=== PATIENT | female | born 1985 | race Caucasian/White ===

== ENCOUNTER 2020-12-30 06:50 | Inpatient (IN) ==
[2020-12-30] MEDS ORDERED: FAMOTIDINE 20 MG/2 ML VIAL IV ONE (07:06)
[2020-12-30] MEDS ORDERED: CITRIC ACID/SODIUM CITRATE 30 ML UDCUP PO ONE (07:06)
[2020-12-30] MEDS ORDERED: CLINDAMYCIN INJ 900 MG in PREMIX 1 EACH IV ONE (07:08)
[2020-12-30] MEDS ORDERED: OXYTOCIN/LR 20 UNIT/1,000 ML BAG IV ONE ×3 (07:25→10:26)
[2020-12-30] MEDS ORDERED: ONDANSETRON 4 MG/2 ML VIAL IV PRN ×2 (07:26→10:26)
[2020-12-30 07:29] LABS: Basophils % 0.4 % (0.0-0.8); Eosinophils # 0.1 10*3/uL (0.0-0.87); Eosinophils % 0.8 % (0.00-10.9); Hematocrit 39.6 VOL% (35.7-47.0); Hemoglobin 13.1 GM/DL (12.0-16.0); Immature Granulocytes % 2.6 %; Immature Granulocytes Absolute 0.28 #; Lymphocytes # 1.5 10*3/uL (1.4-4.0); Lymphocytes % 13.3 % (21.3-54.2); Mean Corpuscular HGB Conc 33.1 GM/DL (32-36); Mean Corpuscular Volume 91.7 FL (87-102); Mean Platelet Volume 11.7 FL (9.6-12.0); Neutrophils % 76.9 % (38.7-73.9); Platelet Count 232 T/CUMM (130-400); Red Blood Count 4.32 MC/CUMM (3.8-5.5)
[2020-12-30] MEDS ORDERED: LACTATED RINGERS 1,000 ML IV SCH ×2 (07:30→10:30)
[2020-12-30 07:47] LABS: Alanine Aminotransferase 27 U/L (13-56); Albumin 2.6 G/DL (3.4-5.0); Alkaline Phosphatase 219 U/L (45-117); Aspartate Amino Transferase 23 U/L (0-37); Bilirubin,Total < 0.39 MG/DL (0.2-1.0); Blood Urea Nitrogen 12 MG/DL (7-18); Calcium 8.7 MG/DL (8.5-10.1); Carbon Dioxide 20 MMOL/L (21-32); Estimated Glom Filtration Rate 135 ML/MIN; Glucose 71 MG/DL (74-106); Osmolality,Calculated 270.8 MOS/KG (273-304); Potassium 3.8 MMOL/L (3.5-5.1); Sodium 137 MMOL/L (136-145); Total Protein 7.5 G/DL (6.4-8.3)
[2020-12-30] MEDS ORDERED: miSOPROStoL 200 MCG TABLET ONE (08:13)
[2020-12-30] MEDS ORDERED: TRANEXAMIC ACID 1,000 MG/10 ML VIAL ONE (08:13)
[2020-12-30] MEDS ORDERED: METHYLERGONOVINE 0.2 MG/1 ML AMP ONE (08:14)
[2020-12-30] MEDS ORDERED: CARBOPROST TROMETHAMINE 250 MCG/ML AMP IM ONE (08:14)
[2020-12-30] MEDS ORDERED: BUPIVACAINE SPINAL 0.75% 2 ML AMP SPINAL ONE (08:16)
[2020-12-30] MEDS ORDERED: MORPHINE 10 MG/10 ML VIAL ONE (08:17)
[2020-12-30] MEDS ORDERED: fentaNYL 100 MCG/2 ML VIAL ONE (08:17)
[2020-12-30] MEDS ORDERED: PHENYLEPHRINE 1 MG/10 ML SYRINGE IV ONE (08:34)
[2020-12-30] MEDS ORDERED: ONDANSETRON 4 MG/2 ML VIAL ONE (08:34)
[2020-12-30] MEDS ORDERED: ePHEDrine 50 MG/ML VIAL ONE (08:37)
[2020-12-30] MEDS ORDERED: LACTATED RINGERS 1,000 ML IV ONE (08:54)
[2020-12-30] MEDS ORDERED: BUPIVACAINE MPF 0.25% 30 ML VIAL ONE (09:12)
[2020-12-30 09:15] LABS: Cord Venous Blood HCO3 21.9 MMOL/L; Cord Venous Blood PCO2 37.1 MMHG; Cord Venous Blood PO2 36.8 MMHG
[2020-12-30] MEDS ORDERED: ACETAMINOPHEN 1,000 MG/100 ML VIAL IV ONE (09:23)
[2020-12-30 09:33] LABS: Bilirubin,Urine Negative (Negative); Blood, Urine Negative (Negative); Glucose,Urine (UA) Negative (Negative); Ketones,Urine Negative (Negative); Mucus,Urine Occasional /LPF (Occasional); Nitrite,Urine Negative (Negative); Protein,Urine Negative; Squamous Epithelial Cell,Urine Occasional /HPF (0-10); Urine Appearance CLEAR (Clear); Urine Color Yellow (Yellow); Urine Specific Gravity 1.014 (1.001-1.035); Urine Urobilinogen < 2.0 EU/DL (0.2-1.0)
[2020-12-30] MEDS ORDERED: IBUPROFEN 800 MG TABLET PO PRN (10:26)
[2020-12-30] MEDS ORDERED: MAGNESIUM HYDROXIDE SUSP 30 ML UDCUP PO PRN (10:26)
[2020-12-30] MEDS ORDERED: RHO(D) IMMUNE GLOBULIN 300 MCG SYRINGE IM ONE (10:26)
[2020-12-30] MEDS ORDERED: SIMETHICONE CHEW 80 MG TABLET PO PRN (10:26)
[2020-12-30] MEDS ORDERED: ACETAMINOPHEN 325 MG TABLET PO PRN (10:26)
[2020-12-30] MEDS: CLINDAMYCIN INJ 900 MG in PREMIX 1 EACH IV SCH ×2 (15:44→23:26)
[2020-12-30] MEDS: DOCUSATE SODIUM 100 MG CAPSULE PO SCH (23:17)
[2020-12-30] MEDS: oxyCODONE/ACETAMINOPHEN 5-325 MG TABLET PO PRN (23:28)
[2020-12-31] MEDS: oxyCODONE/ACETAMINOPHEN 5-325 MG TABLET PO PRN ×3 (05:24→17:26)
[2020-12-31] MEDS: IBUPROFEN 800 MG TABLET PO PRN ×3 (05:24→19:46)
[2020-12-31 05:25] LABS: Basophils % 0.4 % (0.0-0.8); Eosinophils # 0.1 10*3/uL (0.0-0.87); Eosinophils % 1.4 % (0.00-10.9); Hematocrit 32.1 VOL% (35.7-47.0); Immature Granulocytes % 1.2 %; Immature Granulocytes Absolute 0.12 #; Lymphocytes # 1.1 10*3/uL (1.4-4.0); Lymphocytes % 11.6 % (21.3-54.2); Mean Corpuscular HGB Conc 34.3 GM/DL (32-36); Mean Corpuscular Volume 91.5 FL (87-102); Monocytes % 7.7 % (1.7-12.7); Neutrophils % 77.7 % (38.7-73.9); Platelet Count 143 T/CUMM (130-400); Red Blood Count 3.51 MC/CUMM (3.8-5.5); Red Cell Distribution Width 14.1 % (9.3-17.3); White Blood Count 9.7 T/CUMM (4-12)
[2020-12-31] MEDS: MULTIVITAMIN (PRENATAL) TABLET PO SCH (10:02)
[2020-12-31] MEDS: DOCUSATE SODIUM 100 MG CAPSULE PO SCH ×3 (10:03→21:02)
[2020-12-31] MEDS ORDERED: BISACODYL 10 MG SUPP RECTAL PRN (19:36)
[2021-01-01] MEDS: IBUPROFEN 800 MG TABLET PO PRN ×2 (02:14→08:29)
[2021-01-01] MEDS: oxyCODONE/ACETAMINOPHEN 5-325 MG TABLET PO PRN (02:15)
[2021-01-01] MEDS: DOCUSATE SODIUM 100 MG CAPSULE PO SCH (08:29)
[2021-01-01] MEDS: MULTIVITAMIN (PRENATAL) TABLET PO SCH (08:29)
[2021-01-01 09:15] VITALS: BP 108/82
== END 2021-01-01 11:25 | disposition home or self-care (01) | DRG 785 ==
LOC: N.LD 06:50 → N.OB 12:40
PROVIDERS: ADMIT Obstetrics & Gynecology; ATTEND Obstetrics & Gynecology